=== PATIENT | female | born 1980 | race Two or more races ===

== ENCOUNTER 2024-04-24 13:27 | Outpatient (RCR) | payer MEDICAID, SELFPAY | END 2024-05-19 23:59 | disposition home or self-care (01) | LOC: SCTC 13:27 | PROVIDERS: PCP Physician Assistant; Referring Provider Physician Assistant; Visit Provider Nurse Practitioner Family | DX: D05.12 Intraductal carcinoma in situ of left breast (principal); Z90.12 Acquired absence of left breast and nipple; Z92.3 Personal history of irradiation; Z79.810 Long term (current) use of selective estrogen receptor modulators (SERMs); Z17.0 Estrogen receptor positive status [ER+]; Z17.22 Progesterone receptor negative status | CPT/HCPCS: 99212; G0463 ==

== ENCOUNTER → 2024-06-01 | Outpatient (CLI) | payer MEDICAID, SELFPAY ==
--- NOTE | 2024-06-01 12:20 | XR_ITS ---
Examination: Bone densitometry Date and time of exam:June 01, 2024 1223 hours INDICATIONS: 43-year-old female taking albuterol, vitamin D and calcium one month Technique: Lumbar spine and hip total bone mineralization values of an calculated. Peak reference and age match control results have been displayed. Findings: Lumbar spine total bone mineralization is1.125 gm/cm2. This is 0.7 standard deviations above peak reference. This is 1.1 standard deviations above age-matched controls. Hip total bone mineralization is 1.244 gm/cm2 This is 2.1 standard deviations above peak reference. This is 2.1 standard deviations above age-matched controls Impression: There is normal mineralization based on lumbar spine measurements. There is normal mineralization based on hip measurements
== END | disposition home or self-care (01) ==
PROVIDERS: PCP Family Medicine; Referring Provider Nurse Practitioner Family; Visit Provider Nurse Practitioner Family
DX: M81.0 Age-related osteoporosis without current pathological fracture (principal); C50.912 Malignant neoplasm of unspecified site of left female breast
CPT/HCPCS: 77080

== ENCOUNTER 2024-08-22 13:10 | Outpatient (RCR) | payer MEDICAID, SELFPAY ==
--- NOTE | 2024-08-23 12:59 | CTCFLWUP_ITS ---
Patient: DELMY BAER : 1980 Page 2 of 2 FOLLOW UP NOTE DATE OF SERVICE: 08/22/2024 NAME: DELMY BAER ACCOUNT: [id number] : 1980 AGE: 43 INTERVAL HISTORY: A female with a history of stage 0 left breast cancer presented for treatment follow-up and bone density results review. She is currently taking tamoxifen (scheduled until 2029), calcium, and vitamin D. May bone density scan showed good results. Examination revealed tight, hard scar tissue at the left breast surgical site. Labs indicated macrocytosis. Plan includes continuing tamoxifen, calcium and vitamin D, mammogram on the , B12 and folate testing, starting Centrum Silver, possible B12 supplementation, and daily scar massage with oil. Chief Complaint Follow-up for breast cancer treatment, review of bone density results History of Present Illness The patient is a female with a history of left breast cancer, currently taking tamoxifen. She presents for follow-up of her cancer treatment and bone density results. The patient was diagnosed with stage 0 left breast cancer and has been taking tamoxifen as part of her treatment regimen. She is scheduled to continue tamoxifen therapy until 2029, completing a 5-year course of treatment. The patient reports adherence to her prescribed medications, including calcium and vitamin D supplements. The patient underwent a bone density scan in May, with results indicating good bone health. She is scheduled for a mammogram on the of this month as part of her ongoing cancer surveillance. During the visit, the patient's surgical site from her previous breast cancer treatment was examined. The area was noted to be tight and sore, causing discomfort when touched. The patient has not been massaging the area, which may contribute to the tightness and discomfort. Medical History - Left breast cancer, stage 0 Surgical History - Left breast cancer surgery (stage 0) Medications and Supplements - Tamoxifen - Taking for left breast cancer until 2029 - Calcium - Vitamin D Physical Examination Breast: Left breast surgical site noted. Scar tissue palpated, which is tight and hard. Musculoskeletal: Patient able to perform hand movements as instructed. 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 S/p left breast partial mastectomy and sentinel lymph node biopsy (08/31/2023). s/p adjuvant radiation therapy to the left breast. Tamoxifen started on 09/15/2023 BRCA 1and2 negative Premenopausal status. DIAGNOSIS: Malignant neoplasm of unspecified site of left female breast [ICD10] C50.912 DATE OF DIAGNOSIS: 08/31/2023 STAGE/TNM: Stage 0 ductal carcinoma in situ DCIS, high-grade, ER positive, MI negative TREATMENT HISTORY: Care?Plan Start?Date Cycle Day Intent HISTORY OF PRESENT ILLNESS: Delmy Baer is a 43-year-old [place] speaking female with history of mild hypertension has the following oncology history. 05/06/2022: Ms. Baer had bilateral breast ultrasounds to evaluate outside abnormal mammogram done on February 14, 2022. 06/15/2022: Ms. Baer had ultrasound-guided biopsy of the right breast mass as well as left breast mass 05/26/2023: Ms. Baer had left breast diagnostic mammogram 07/13/2023: Stereotactic guided vacuum-assisted left breast biopsy was performed 08/31/2023: Ms. Baer had guided wire localization and partial mastectomy of the left breast 09/15/2023: Ms. Baer is started on adjuvant tamoxifen. 09/30/2023: Dalila hereditary cancer test? OTHER MEDICAL HISTORY/CONDITIONS: DCIS?-?07/16/23, second opinion with Dr. Moran 10/2023, would like to continue f/u with [facility] Asthma Depression Left breast partial mastectomy - 08/31/23 x 2 - 2004; 2007 FAMILY HISTORY: Cancer?History:?Denies Patient?denies?family?cancer?history. 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 amitriptyline - 50 mg 1 tab every night before sleep 2. Citracal + D Slow Release - 600 mg-12.5 mcg (500 unit) 1 tab one tab po twice a day 3. Elavil - 50 mg one tablet at bedtime daily 4. hydroxyzine HCl - 25 mg 1 tab Every day before sleep 5. Proventil HFA - 90 mcg/actuation 2 Puff(s) Daily 6. tamoxifen - 20 mg 1 tab one tab po q daily 7. TylenoL - 500 mg 3 tab Twice a Day Medications Last Reconciled by Madelyn Bose MA on 04/24/2024 ALLERGIES: No Known Drug Allergies REVIEW OF SYSTEMS: A complete 14-point review of systems was performed and is negative except as noted in interval history. PHYSICAL EXAMINATION: VITAL SIGNS: Temperature?98, B/P?137/88, Oxygen?Saturation?98% PAIN: 0 - No pain ECOG Performance Status: 0 - Asymptomatic and fully active GENERAL APPEARANCE: Appears well, in no apparent distress, appropriately interactive. HEENT: Normocephalic, no temporal wasting, normal conjunctiva, no scleral icterus, normal hearing, lips without lesions, neck normal range of motion. CARDIOVASCULAR: Normal heart sounds BREAST: Healed surgical scar to left partial mastectomy site, no palpable lumps. PULMONARY: Normal respiratory effort, no respiratory distress or use of accessory muscles, speaking in full sentences, no tachypnea. BREAST: Healed surgical scar to left breast, no palpable lumps to breast or left axilla. EXTREMITIES: No pedal edema or cyanosis. SKIN: Normal skin appearance. NEUROLOGIC: Alert and oriented x4. PSHYCHIATRIC: Appropriate affect, mood normal, behavior normal, intact thought and speech. LABORATORY DATA: I have personally reviewed and interpreted each of the patient?s relevant lab tests, abnormal findings are below: Date ASSESSMENT/PLAN: 1. 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 S/p left breast partial mastectomy and sentinel lymph node biopsy (08/31/2023). S/p adjuvant radiation therapy to the left breast. She started adjuvant tamoxifen on 09/15/2023. Tolerating it well since starting amitriptyline for hot flashes and depression. BRCA 1and2 negative. Premenopausal status, last menstrual period was 03/2024, menses less frequent. No family history of breast or ovarian cancers. Continue amitriptyline. Start Citracal twice daily. Continue Tamoxifen 20 mg p.o. daily. The plan is to continue taking tamoxifen for a total of 5 years. Female patient with history of left breast cancer, currently on tamoxifen, presenting for follow-up and review of bone density results. Breast Cancer, Left Assessment: Patient has a history of stage 0 left breast cancer, currently on tamoxifen therapy. Bone density scan performed in May showed normal results. The patient is recommended to continue tamoxifen for a total of 5 years, which will be completed in 2030. Plan: - Continue tamoxifen until 2029 (5-year course) - Continue calcium and vitamin D supplementation - Mammogram scheduled for the of this month - Telephone follow-up in 1 month to review mammogram results - In-person follow-up in 6 months Macrocytosis Assessment: Recent labs indicate the patient's red blood cells are slightly enlarged, suggesting possible macrocytosis. This finding warrants further investigation to determine the underlying cause, with B12 and folate deficiencies being common etiologies. Plan: - Order B12 and folic acid blood tests - Patient to complete blood work today or tomorrow - Once blood work is completed: - Start Centrum Silver daily - If B12 deficiency is confirmed, start B12 supplementation (chewable form suggested) - Telephone follow-up in 1 month to review results Post-surgical Scar Assessment: Patient has a tight, possibly uncomfortable post-surgical scar, likely from breast cancer surgery. The scar tissue appears to be causing discomfort and may benefit from massage therapy to improve flexibility and reduce tightness. Plan: - Patient education provided on scar massage technique - Recommend daily scar massage with oil to soften the tissue and improve comfort Continue following up with PCP for other chronic illnesses. DEXA CBC CMP Bilateral mammogram due 08/2023 RETURN TO CLINIC: 1 month BILLING AND COMPLIANCE: I reviewed external records from providers outside my specialty as summarized above. I spent a total of 50 minutes on this patient?s care on the day of their visit excluding time spent related to any billed procedures. This time includes time spent with the patient as well as time spent documenting in the medical record, reviewing patients records and tests, obtaining history, placing orders, communicating with other healthcare professionals, counseling the patient, family or caregiver, and/or care coordination for the diagnoses above. Electronically Signed by: Nigel Robles MD T: 12:57 PM CC: Piter?Jarrett? PCP: Kayli Dunn Referring: Kayli Dunn This document was completed utilizing speech recognition software. Grammatical errors, random word insertions, pronoun errors, and incomplete sentences are an occasional consequence of this system due to software limitations, ambient noise, and hardware issues. Any formal questions or concerns about the content, text or information contained within the body of this dictation should be directly addressed to the provider for clarification.
== END 2024-09-16 23:59 | disposition home or self-care (01) ==
LOC: SCTC 13:10
PROVIDERS: PCP Physician Assistant; Referring Provider Physician Assistant; Visit Provider Internal Medicine Hematology & Oncology
DX: C50.912 Malignant neoplasm of unspecified site of left female breast (principal); Z17.0 Estrogen receptor positive status [ER+]; Z17.22 Progesterone receptor negative status; Z90.12 Acquired absence of left breast and nipple; Z92.3 Personal history of irradiation; Z79.810 Long term (current) use of selective estrogen receptor modulators (SERMs); D75.89 Other specified diseases of blood and blood-forming organs
CPT/HCPCS: 99213; G0463

== ENCOUNTER → 2024-09-06 | Outpatient (CLI) | payer MEDICAID, SELFPAY ==
--- NOTE | 2024-09-06 09:15 | XR_ITS ---
Examination: Screening digital mammography, bilateral Computer aided detection 3-D breast Tomosynthesis, bilateral Date and time of exam: September 06, 2024 0845 hours Compared to mammograms dating to March 10, 2023 Indication: Screening Technique: Nonmagnified MLO, CC views of the breasts to been obtained, reconstructed from 3-D Tomosynthesis images. R2 computer aided detection program utilized for evaluation of suspicious masses and/or abnormal calcifications. 3-D Tomosynthesis images obtained. Findings: The breasts are heterogeneously dense, which may obscure small masses No definite change in nodule with breast biopsy marker upper outer right breast More numerous grouped suspicious microcalcifications upper outer left breast Interval 10 mm focal asymmetry upper left breast MLO view posterior depth The axilla Impression: BI-RADS Category 0: Incomplete: Need additional imaging evaluation Recommend follow-up magnification spot compression views of suspicious microcalcifications upper outer left breast Recommend follow-up spot tomographic views upper outer quadrant left breast posterior depth to assess 10 mm focal asymmetry upper left breast MLO view posterior depth Recommend bilateral breast sonography to complete the workup
== END | disposition home or self-care (01) ==
LOC: CDIM 08:38
PROVIDERS: PCP Physician Assistant; Referring Provider Nurse Practitioner Family; Visit Provider Nurse Practitioner Family
DX: Z12.31 Encounter for screening mammogram for malignant neoplasm of breast (principal); R92.0 Mammographic microcalcification found on diagnostic imaging of breast; N64.89 Other specified disorders of breast; C50.912 Malignant neoplasm of unspecified site of left female breast
CPT/HCPCS: 77063; 77067

== ENCOUNTER 2024-09-19 13:42 | Outpatient (RCR) | payer MEDICAID, SELFPAY | END 2024-10-16 23:59 | disposition home or self-care (01) | LOC: SCTC 13:42 | PROVIDERS: PCP Physician Assistant; Referring Provider Physician Assistant; Visit Provider Nurse Practitioner Family | DX: D05.12 Intraductal carcinoma in situ of left breast (principal); Z17.0 Estrogen receptor positive status [ER+]; Z17.22 Progesterone receptor negative status; Z90.12 Acquired absence of left breast and nipple; Z92.3 Personal history of irradiation; Z79.810 Long term (current) use of selective estrogen receptor modulators (SERMs); E61.1 Iron deficiency | CPT/HCPCS: 99212; G0463 ==

== ENCOUNTER → 2024-11-07 | Outpatient (CLI) | payer MEDICAID, SELFPAY ==
--- NOTE | 2024-11-07 08:30 | XR_ITS ---
Examination: Breast ultrasound complete, bilateral Date and time of exam: November 07, 20242043 hours INDICATIONS: Mammogram September 06, 2024 10 mm focal asymmetry upper left breast posterior depth Technique: Real-time grayscale ultrasonographic imaging bilateral breasts, including all 4 quadrants as well as nipple retroareolar and axillary regions. Findings: Sonographic images right breast 2:00 nodule circumscribed 8 x 5 mm Clinical data 9-year-old circumscribed with marker 21 x 16 mm Sonographic images left breast Retroareolar circumscribed nodule with marker 14 x 14 mm Retroareolar nodule irregular margins 12 by 8mm IMPRESSION: BI-RADS Category 4: Suspicious for malignancy Biopsy of the 12 x 8 mm retroareolar nodule left breast is needed to exclude breast carcinoma, which can be done under ultrasound guidance In addition continued six-month follow-up bilateral breast sonography strongly recommended
--- NOTE | 2024-11-07 09:30 | XR_ITS ---
Examination: Diagnostic digital mammography, unilateral, LEFT Computer aided detection 3-D breast Tomosynthesis, unilateral Date and time of exam: November 07, 2024 0905 hours INDICATIONS: Mammogram September 06, 2024 suspicious microcalcifications upper outer left breast focal asymmetry upper left breast MLO view posterior depth Technique: Nonmagnified MLO, CC views of the left breast have been obtained, reconstructed from 3-D Tomosynthesis images. R2 computer aided detection program utilized for evaluation of suspicious masses and/or abnormal calcifications. 3-D Tomosynthesis images obtained. Findings: The breast is heterogeneously dense, which may obscure small masses Suspicious microcalcifications are confirmed upper outer left breast Suspicious nodular density is confirmed on the spot compression view outer left breast Please see the left breast sonogram report today indicating BI-RADS 4 suspicious nodule retroareolar region left breast Impression: BI-RADS category 4: Suspicious for malignancy Biopsy of suspicious microcalcifications upper outer left breast is needed to exclude breast carcinoma, the calcifications are amenable to stereotactic breast biopsy for diagnosis Please see the left breast sonogram report today indicating BI-RADS 4 suspicious nodule retroareolar region left breast Also recommend follow-up spot tomographic CC view, MLO view upper extreme posterior left breast
== END | disposition home or self-care (01) ==
LOC: CDIM 08:20
PROVIDERS: PCP Family Medicine; Referring Provider Physician Assistant; Visit Provider Physician Assistant
DX: R92.332 Mammographic heterogeneous density, left breast (principal); R92.0 Mammographic microcalcification found on diagnostic imaging of breast; N63.12 Unspecified lump in the right breast, upper inner quadrant; N63.42 Unspecified lump in left breast, subareolar
CPT/HCPCS: 76641; 77061; 77065; G0279

== ENCOUNTER 2024-11-13 14:20 | Outpatient (RCR) | payer MEDICAID, SELFPAY | END 2024-11-16 23:59 | disposition home or self-care (01) | LOC: SCTC 14:20 | PROVIDERS: PCP Physician Assistant; Referring Provider Physician Assistant; Visit Provider Nurse Practitioner Family | DX: D05.12 Intraductal carcinoma in situ of left breast (principal); Z90.12 Acquired absence of left breast and nipple; Z17.0 Estrogen receptor positive status [ER+]; Z17.22 Progesterone receptor negative status; Z79.810 Long term (current) use of selective estrogen receptor modulators (SERMs); D75.89 Other specified diseases of blood and blood-forming organs | CPT/HCPCS: 96365; 96375; 99212; A4216; J2919; J3490; J7040; J7050; Q0138; G0463 ==

== ENCOUNTER → 2025-01-11 | Outpatient (CLI) | payer MEDICAID, SELFPAY ==
[2025-01-10 09:56] LABS: INR 0.9 (0.9-1.3); Partial Thromboplastin Time 23.8 Seconds (22.0-36.0); Prothrombin Time 10.3 Seconds (9.0-12.2)
[2025-01-10 09:57] LABS: Basophils # (Auto) 0.0 Thou/mm3 (0.0-0.2); Basophils % (Auto) 1 % (0-2.5); Eosinophils # (Auto) 0.2 Thou/mm3 (0.0-0.5); Eosinophils % (Auto) 4 % (0-10); Hematocrit 35.7 % (36.0-46.0); Hemoglobin 12.3 g/dL (12.0-16.0); Immature Granulocytes Auto 0.02 Thou/mm3 (0.00-0.00); Lymphocytes # (Auto) 2.0 Thou/mm3 (1.0-4.8); Lymphocytes % (Auto) 38 % (10-50); Mean Corpuscular HGB Conc 34.5 g/dl (31.0-37.0); Mean Corpuscular Hemoglobin 32.1 pg (25.0-35.0); Mean Corpuscular Volume 93 fL (80-100); Monocytes # (Auto) 0.6 Thou/mm3 (0.0-0.8); Monocytes % (Auto) 11 % (0-12); Neutrophils # (Auto) 2.4 Thou/mm3 (1.8-7.7); Neutrophils % (Auto) 47 % (37-80); Nucleated Red Blood Cell # 0.00 Thou/mm3 (0.00-0.00); Nucleated Red Blood Cell % 0 /100 WBC (0); Platelet Count 218 Thou/mm3 (140-440); RDW Standard Deviation 41.9 fL (36.4-46.3); Red Blood Count 3.83 Miln/mm3 (4.00-5.20); White Blood Count 5.2 Thou/mm3 (3.6-11.0)
[2025-01-10 10:09] LABS: HCG,Qualitative Serum Negative
--- NOTE | 2025-01-11 08:30 | XR_ITS ---
Examination: Stereotactic guided vacuum assisted left breast biopsy with clip placement Specimen radiograph Date and time of exam:January 11, 2025, 0928 hours INDICATIONS: Mammogram November 07, 2024 BI-RADS 4 suspicious microcalcifications upper outer left breast Timeout performed, documenting correct patient, order, referring physician, patient's site and reason for procedure, allergies to medications Informed consent provided. Time out performed Technique: The lesion left breast was localized with a stereotactic apparatus. Local anesthesia was obtained after prepping the skin at the entrance site and applying sterile drape Maximum sterile barrier technique. 5 core biopsies were then obtained, vacuum assisted, stereotactically guided, at the lesion site. Specimens appear adequate. Stereotactic breast marker was introduced at the lesion site Estimated blood loss 2 cc. Patient tolerated the procedure well and appeared in satisfactory and stable condition at completion of the procedure Pathology report to follow Impression: Successful stereotactic breast biopsy as described above. Specimen radiograph contains the biopsied suspicious microcalcifications.
== END | disposition home or self-care (01) ==
LOC: SIRX 01-12 08:01
PROVIDERS: Radiology Diagnostic Radiology; PCP Physician Assistant; Referring Provider Nurse Practitioner Family; Visit Provider Nurse Practitioner Family
DX: C50.912 Malignant neoplasm of unspecified site of left female breast (principal); Z01.812 Encounter for preprocedural laboratory examination
CPT/HCPCS: 19081; 36415; 84703; 85025; 85610; 85730; A4648; A4649

== ENCOUNTER 2025-02-08 10:20 | Outpatient (RCR) | payer MEDICAID, SELFPAY | END 2025-02-16 23:59 | disposition home or self-care (01) | LOC: SCTC 10:20 | PROVIDERS: PCP Family Medicine; Referring Provider Family Medicine; Visit Provider Nurse Practitioner Family | DX: D05.12 Intraductal carcinoma in situ of left breast (principal); Z17.0 Estrogen receptor positive status [ER+]; Z17.22 Progesterone receptor negative status; Z90.12 Acquired absence of left breast and nipple; Z79.810 Long term (current) use of selective estrogen receptor modulators (SERMs); Z86.2 Personal history of diseases of the blood and blood-forming organs and certain disorders involving the immune mechanism | CPT/HCPCS: 99212; G0463 ==

== ENCOUNTER 2025-03-22 10:19 | Outpatient (RCR) | payer MEDICAID, SELFPAY | END 2025-04-18 23:59 | disposition home or self-care (01) | LOC: SCTC 10:19 | PROVIDERS: PCP Family Medicine; Referring Provider Family Medicine; Visit Provider Nurse Practitioner Family | DX: D05.12 Intraductal carcinoma in situ of left breast (principal); Z90.12 Acquired absence of left breast and nipple; Z92.3 Personal history of irradiation; Z79.810 Long term (current) use of selective estrogen receptor modulators (SERMs) | CPT/HCPCS: 99212; G0463 ==